=== PATIENT | female | born 1980 | race Caucasian/White ===

== ENCOUNTER 2021-02-02 22:55 | Observation (INO) | payer BC, OTHER ==
[~2021-02-02] VITALS: Ht 160 cm; Wt 58.1 kg
[2021-02-02 23:31] LABS: HEMOGLOBIN 12.9 gm/dl (12.3-15.3); RED BLOOD COUNT 4.18 M/UL (4.00-5.10); WHITE BLOOD COUNT 6.4 K/UL (4.5-11.0)
[2021-02-02 23:54] LABS: BUN/CREATININE RATIO 17 (0-10)
[2021-02-03] MEDS ORDERED: ARMOUR THYROID60 MG PO (04:03)
[2021-02-03] MEDS ORDERED: LEVOTHYROXINE25 MC1 PO (04:04)
[2021-02-03] MEDS ORDERED: VIIBRYD20 MG PO (04:04)
== END 2021-02-03 15:49 | disposition home or self-care (01) ==
LOC: ER1 22:55 → CDU 02-03 02:44 → PROG CARE 02-03 02:44
PROVIDERS: Physician Assistant; ADMIT Internal Medicine
DX: R53.1 Weakness (principal); H53.8 Other visual disturbances; E03.9 Hypothyroidism, unspecified; F41.0 Panic disorder [episodic paroxysmal anxiety]; F32.9 Major depressive disorder, single episode, unspecified; Z86.2 Personal history of diseases of the blood and blood-forming organs and certain disorders involving the immune mechanism; Z98.890 Other specified postprocedural states; Z79.899 Other long term (current) drug therapy; Z20.822 Contact with and (suspected) exposure to COVID-19
CPT/HCPCS: 70496; 70498; 70553; 71045; 80053; 80307; 81001; 82550; 82553; 83874; 84439; 84443; 84484; 84703; 85025; 85610; 85652; 85730; 86140; 93005; 99285; A9577; G0008; G0378; Q9967; U0002

== ENCOUNTER → 2021-04-04 | Outpatient (CLI) | payer BC, OTHER ==
[~2021-04-04] MED LIST: ARMOUR THYROID60 MG PO; LEVOTHYROXINE25 MC1 PO; VIIBRYD20 MG PO
== END ==
LOC: SLEEP-COR 14:15
DX: G47.33 Obstructive sleep apnea (adult) (pediatric) (principal); G47.00 Insomnia, unspecified; G47.50 Parasomnia, unspecified
CPT/HCPCS: 95810

== ENCOUNTER 2021-04-07 03:17 | Emergency (ER) | payer BC, OTHER ==
[2021-04-07 04:03] LABS: HEMOGLOBIN 13.7 gm/dl (12.3-15.3); RED BLOOD COUNT 4.33 M/UL (4.00-5.10); WHITE BLOOD COUNT 4.7 K/UL (4.5-11.0)
[2021-04-07 04:28] LABS: BUN/CREATININE RATIO 15 (0-10)
== END 2021-04-07 07:13 | disposition home or self-care (01) ==
LOC: ER1 03:17
PROVIDERS: Family Medicine; Physician Assistant
DX: H53.452 Other localized visual field defect, left eye (principal)
CPT/HCPCS: 36600; 71045; 80053; 80307; 81001; 82550; 82553; 82803; 83690; 84484; 84703; 85025; 87086; 93005; 99284; G0480

== ENCOUNTER → 2021-06-12 | Outpatient (CLI) | payer BC ==
[2021-06-12 08:53] LABS: HEMOGLOBIN 12.8 gm/dl (12.3-15.3); RED BLOOD COUNT 4.08 M/UL (4.00-5.10); WHITE BLOOD COUNT 4.5 K/UL (4.5-11.0)
[2021-06-12 09:35] LABS: BUN/CREATININE RATIO 11 (0-10)
== END ==
LOC: LAB 08:09
PROVIDERS: Internal Medicine
DX: E03.9 Hypothyroidism, unspecified (principal); M25.50 Pain in unspecified joint; R53.83 Other fatigue; R76.8 Other specified abnormal immunological findings in serum; E06.3 Autoimmune thyroiditis; D89.89 Other specified disorders involving the immune mechanism, not elsewhere classified
CPT/HCPCS: 36415; 80053; 81001; 82550; 82570; 82728; 83520; 84156; 84439; 84443; 85025; 86200

== ENCOUNTER → 2022-07-02 | Outpatient (CLI) | payer BC | LOC: SLEEP 21:30 | DX: G47.9 Sleep disorder, unspecified (principal); R06.83 Snoring | CPT/HCPCS: 95810 ==

== ENCOUNTER → 2022-08-07 | Outpatient (CLI) | payer BC | LOC: EXRD 07-29 08:30 | DX: R10.811 Right upper quadrant abdominal tenderness (principal) | CPT/HCPCS: 76705 ==